=== PATIENT | female | born 1955 | race Caucasian/White ===

== ENCOUNTER 2017-07-29 12:19 | Emergency (ER) | payer OTHER, MEDICAID ==
[~2017-07-29] VITALS: Ht 152.4 cm; Wt 56.2 kg
[~2017-07-29 12:19] MED LIST: TAMO20TA4 PO
[2017-07-29] MEDS ORDERED: IBUPROFEN 600 MG TABLET PO ONE (12:30)
[2017-07-29] MEDS ORDERED: IBUPROFEN 600 MG TABLET ONE (12:46)
--- NOTE | 2017-07-29 12:49 | NUR ---
PT IS IN ROOM #2A. DR ROBIN EVALUATED THE PT.
--- NOTE | 2017-07-29 13:53 | NUR ---
pt was d/c to home. d/c instructions given to the pt.
[2017-07-29 13:55] VITALS: BP 126/76
== END 2017-07-29 14:14 | disposition home or self-care (01) ==
LOC: ER 12:19
DX: S52.122A Displaced fracture of head of left radius, initial encounter for closed fracture (principal); S30.0XXA Contusion of lower back and pelvis, initial encounter; M54.5 Low back pain; Z88.0 Allergy status to penicillin; Z88.1 Allergy status to other antibiotic agents; Z79.899 Other long term (current) drug therapy; W18.30XA Fall on same level, unspecified, initial encounter; Y93.51 Activity, roller skating (inline) and skateboarding; Y92.89 Other specified places as the place of occurrence of the external cause; Y99.8 Other external cause status
CPT/HCPCS: 72100; 72220; 73080; 73090; A4663

== ENCOUNTER 2017-08-05 11:54 | Emergency (ER) | payer OTHER, MEDICAID ==
[~2017-08-05] VITALS: Ht 152.4 cm; Wt 56.2 kg
[2017-08-05] MEDS ORDERED: NAPR220C15 PO (12:20)
--- NOTE | 2017-08-05 13:56 | NUR ---
MSE COMPLETED, SLING TO LEFT ARM. PT AMBULATED W/O DIFF/TOOK ALL BELONGINGS.
[2017-08-05 14:15] VITALS: BP 84/80
== END 2017-08-05 13:50 | disposition home or self-care (01) ==
LOC: ER 11:54
DX: S52.122D Displaced fracture of head of left radius, subsequent encounter for closed fracture with routine healing (principal); W18.30XD Fall on same level, unspecified, subsequent encounter; Z88.0 Allergy status to penicillin; Z88.1 Allergy status to other antibiotic agents; Z79.1 Long term (current) use of non-steroidal anti-inflammatories (NSAID); Z79.899 Other long term (current) drug therapy
CPT/HCPCS: 73080; A4663

== ENCOUNTER 2019-11-04 05:42 | Emergency (ER) | payer MEDICARE, MEDICAID ==
[~2019-11-04] VITALS: Ht 152.4 cm; Wt 55.8 kg
[~2019-11-04 05:42] MED LIST changes: +NAPR220C15 PO
--- NOTE | 2019-11-04 05:50 | NUR ---
PATIENT WAS MSE BY DR WILKINS IN ROOM 04A. PATIENT A & O X4.
[2019-11-04 06:35] VITALS: BP 121/73
--- NOTE | 2019-11-04 06:35 | NUR ---
Patient discharged to home in stable condition. Written and verbal after care instructions given. Patient verbalizes understanding of instructions. Stressed follow up or return to ER for worsening s/s. Taken by W/C to patient car.
== END 2019-11-04 06:35 | disposition home or self-care (01) ==
LOC: ER 05:52
DX: S93.402A Sprain of unspecified ligament of left ankle, initial encounter (principal); X50.1XXA Overexertion from prolonged static or awkward postures, initial encounter; Y93.01 Activity, walking, marching and hiking; Z85.3 Personal history of malignant neoplasm of breast
CPT/HCPCS: 73610; A4663